=== PATIENT | male | born 1980 | race Two or more races ===

== ENCOUNTER 2024-09-07 18:32 | Emergency (ER) | payer MEDICARE, OTHER ==
[~2024-09-07] VITALS: Ht 152.4 cm; Wt 77.9 kg
[2024-09-07] MEDS: HALOPERIDOL LACTATE 5 MG/ML INJ VIAL IM ONE (18:57)
[2024-09-07] MEDS: HALOPERIDOL LACTATE 5 MG/ML INJ VIAL ONE (18:57)
[2024-09-07 19:28] LABS: Basophils # (auto) 0.1 10 ^3/uL (0-0.2); Eosinophils # (auto) 0.1 10 ^3/uL (0-0.8); Lymphocytes # (auto) 1.9 10 ^3/uL (0.4-5.4); Lymphocytes % (auto) 13.8 % (10.0-50.0); Mean Corpuscular Hemoglobin 28.5 pg (28.0-32.0); Mean Corpuscular Hgb Conc. 34.3 g/dL (32.0-36.0); Monocytes # (auto) 1.9 10 ^3/uL (0-1.3); Monocytes % (auto) 13.5 % (0.0-12.0); Neutrophils # (auto) 9.7 10 ^3/uL (1.6-8.6); Neutrophils % (auto) 70.7 % (37.0-80.0); Nucleated Red Blood Cells % 0.1 %; Platelet Count (auto) 321 10^3/uL (140-450); Red Blood Cells 4.21 10^6/uL (4.5-5.90); Red Cell Distribution Width 13.5 % (11.8-14.3); White Blood Cell 13.7 10^3/uL (4.4-10.8)
[2024-09-07 19:30] VITALS: PULSE 84; RESP 16; O2SAT 96
[2024-09-07 19:47] LABS: Alanine Aminotransferase 25 U/L (7-40); Albumin 3.9 g/dL (3.2-4.8); Alkaline Phosphatase 83 U/L (46-116); Anion Gap 10 (5-15); Aspartate Aminotransferase 18 U/L (13-40); BUN/Creatinine Ratio 19.8 (10.0-20.0); Bilirubin, Total 0.5 mg/dL (0.2-1.0); Blood Urea Nitrogen 16 mg/dL (9-23); Calcium 9.1 mg/dL (8.7-10.4); Carbon Dioxide 24 mmol/L (20-31); Chloride 107 mmol/L (98-107); Potassium 3.9 mmol/L (3.5-5.1); Sodium 141 mmol/L (136-145); Total Protein 6.6 g/dL (5.7-8.2)
[2024-09-07 19:51] LABS: Glucose 115 mg/dL (74-106)
[2024-09-07 20:17] LABS: Urine Bacteria None Seen /hpf (None Seen)
--- NOTE | 2024-09-07 20:22 | ED.PDOC ---
Psychiatric HPI Comments 44 y.o male BIB brother to the ED for an evaluation of left index swelling but is here for mental health assistance. Brother reports patient is homeless, was driving around, found him and brought him into the ED to be evaluated for his swelling and mental state. Brother reports patient has a history of schizophrenia, substance abuse and is non compliant with medication. Brother was concerned of patient's erratic behavior and is requesting a group social worker to aid patient. Patient is unable to answer any questions at this time due to behavior. Chief Complaint: Upper Extremity Time Seen by MD: 20:15 Primary Care Provider: NONE Reviewed Notes: Nurses Notes, Medications, Allergies Information Source: Relative (Sibling) Mode of Arrival: Ambulatory Severity: Unable to Care for Self, Unable to Control Self Severity of Mental Status: Moderate Severity of Symptoms: Moderate Timing: Hours Duration: Since onset Presents with: Other Circumstance: Altered Mental Status Current substance abuse: Unknown Stressors: Homeless History of: Schizophrenia Past Medical History PAST MEDICAL HISTORY: Schizophrenia Surgical History: Unknown Family History Family History: Reviewed,noncontributory to illness Social History Smoker: Unknown Alcohol: Unknown Drugs: Unknown Lives In: Homeless Unable to Obtain due to: Other (unable to answer due to erratic behavior ) Physical Exam General Appearance: Moderate Distress HEENT: Normal ENT Inspection, Pharynx Normal, TMs Normal Neck: Full Range of Motion, Non-Tender, Normal, Normal Inspection Respiratory: Chest Non-Tender, Lungs Clear, No Accessory Muscle Use, No Respiratory Distress, Normal Breath Sounds Cardiovascular: No Edema, No JVD, No Murmur, No Gallop, Normal Peripheral Pulses, Regular Rate/Rhythm Breast Exam: Deferred Gastrointestinal: No Organomegaly, Non Tender, No Pulsatile Mass, Normal Bowel Sounds, Soft Genitalia: Deferred Pelvic: Deferred Rectal: Deferred Extremities: Swelling (left index finger radiating up his hand ) Musculoskeletal : Apperance: Normal Neurologic: Alert, die machine operator II-XII nml as Tested, No Motor Deficits, Normal Affect, Normal Mood, No Sensory Deficits Cerebellar Function: Normal Reflexes: Normal Skin: Dry, Normal Color, Warm Lymphatic: No Adenopathy Was a procedure done? Was a procedure done?: No Psych Differential Dx Psych. Differential Dx: Schizoprenia OD Differential Dx: Delirium, Schizophrenia, Substance Abuse X-Ray, Labs, Meds, VS Vital Signs Date Time Temp Pulse Resp B/P (MAP) Pulse Ox O2 Delivery O2 Flow Rate FiO2 09/07/24 19:30 84 16 96 Room Air* 0 21 09/07/24 19:30 97.8 84 16 110/60 (77) 96 97.8 09/07/24 18:37 100.7 86 16 144/79 (100) 98 100.7 Lab Test 09/07/24 20:10 09/07/24 19:17 Range/Units Urine Color Light-yellow Yellow Urine Clarity Clear Clear Urine pH 6.0 5.0-9.0 Urine Specific [place] 1.018 1.001-1.035 Urine Protein Negative Negative Urine Ketones Negative Negative Urine Blood Negative Negative /uL Urine Nitrite Negative Negative Urine Bilirubin Negative Negative Urine Urobilinogen Normal Negative mg/dL Urine Leukocyte Esterase Negative Negative /uL Urine RBC 1 0 - 3 /hpf Urine Microscopic WBC 1 0-3 /HPF Urine Squamous Epithelial Cells None seen <5 /hpf Urine Bacteria None seen None Seen /hpf Urine Mucus Few None Seen Urine Glucose Normal Normal mg/dL Urine Opiates Screen Neg NEGATIVE Urine Fentanyl Screen Neg NEGATIVE Urine Barbiturates Screen Neg NEGATIVE Urine Phencyclidine Screen Neg NEGATIVE Urine Amphetamines Screen Pos NEGATIVE Urine Benzodiazepines Screen Neg NEGATIVE Urine Cocaine Screen Neg NEGATIVE Urine Cannabinoids Screen Neg NEGATIVE White Blood Count 13.7 H 4.4-10.8 10^3/uL Red Blood Count 4.21 L 4.5-5.90 10^6/uL Hemoglobin 12.0 L 13.5-17.5 g/dL Hematocrit 35.0 L 41.0-53.0 % Mean Corpuscular Volume 83.0 80.0-100.0 fL Mean Corpuscular Hemoglobin 28.5 28.0-32.0 pg Mean Corpuscular Hemoglobin Concent 34.3 32.0-36.0 g/dL Red Cell Distribution Width 13.5 11.8-14.3 % Platelet Count 321 140-450 10^3/uL Mean Platelet Volume 7.2 6.9-10.8 fL Neutrophils (%) (Auto) 70.7 37.0-80.0 % Lymphocytes (%) (Auto) 13.8 10.0-50.0 % Monocytes (%) (Auto) 13.5 H 0.0-12.0 % Eosinophils (%) (Auto) 1.0 0.0-7.0 % Basophils (%) (Auto) 1.0 0.0-2.0 % Neutrophils # (Auto) 9.7 H 1.6-8.6 10 ^3/uL Lymphocytes # (Auto) 1.9 0.4-5.4 10 ^3/uL Monocytes # (Auto) 1.9 H 0-1.3 10 ^3/uL Eosinophils # (Auto) 0.1 0-0.8 10 ^3/uL Basophils # (Auto) 0.1 0-0.2 10 ^3/uL Nucleated Red Blood Cells 0.1 % Sodium Level 141 136-145 mmol/L Potassium Level 3.9 3.5-5.1 mmol/L Chloride Level 107 98-107 mmol/L Carbon Dioxide Level 24 20-31 mmol/L Anion Gap 10 5-15 Blood Urea Nitrogen 16 9-23 mg/dL Creatinine 0.81 0.700-1.30 mg/dL Glomerular Filtration Rate Calc 110 >90 mL/min BUN/Creatinine Ratio 19.8 10.0-20.0 Serum Glucose 115 H 74-106 mg/dL Lactic Acid Level 1.1 0.4-2.0 mmol/L Calcium Level 9.1 8.7-10.4 mg/dL Total Bilirubin 0.5 0.2-1.0 mg/dL Aspartate Amino Transferase (AST) 18 13-40 U/L Alanine Aminotransferase (ALT) 25 7-40 U/L Alkaline Phosphatase 83 46-116 U/L Total Protein 6.6 5.7-8.2 g/dL Albumin 3.9 3.2-4.8 g/dL Current Medications Medications (Trade) Dose Ordered Sig/Georgina Route Start Time Stop Time Status Last Admin Haloperidol Lactate (Haldol) 10 mg ONCE ONCE IM 09/07/24 19:00 09/07/24 19:01 DC 09/07/24 18:57 Ceftriaxone Sodium 50 ml @ 100 mls/hr ONCE ONCE IV 09/07/24 21:00 09/07/24 21:29 DC 09/07/24 21:15 Lorazepam (Ativan Inj) 0.5 mg ONCE ONCE IV 09/07/24 23:45 09/07/24 23:46 DC 09/08/24 00:09 X-Ray, Labs, Meds, VS Comment Spoke with Dr. Rahman, psychiatrist, he had recommends patient will be placed under 5150 hold, patient gravely disabled unable to care for himself Patient placed under ED observation Given Rocephin 1 g for cellulitis of the left index finger Time of 1ST Reevaluation: 20:22 Reevaluation 1ST: Unchanged Patient Education/Counseling: Other Family Education/Counseling: Diagnosis, Treatment, Prognosis Departure 1 Departure Time of Disposition: 00:26 Impression: Primary Impression: Cellulitis of left index finger Additional Impressions: Schizophrenia Qualified Codes: F20.1 - Disorganized schizophrenia Gravely disabled [facility] Condition: Guarded Critical Care Note Critical Care Time?: No Stability Stability form required: No I personally scribed for DARRIN JORDAN ([facility]) on 09/07/24 at 20:22. Electronically submitted by Sarah Helms ([facility]). DARRIN JORDAN Sep 07, 2024 20:22
[2024-09-07 20:27] LABS: Urine Blood Negative /uL (Negative); Urine Clarity Clear (Clear); Urine Color Light-Yellow (Yellow); Urine Mucus FEW (None Seen); Urine Protein, UAD Negative (Negative); Urine Specific Gravity 1.018 (1.001-1.035); Urine Squamous Epithelial Cell None Seen /hpf (<5); Urine Urobilinogen Normal (Negative); Urine WBC 1 /HPF (0-3)
[2024-09-07 20:46] LABS: Amphetamine Screen, Urine Pos (NEGATIVE); Barbiturate Scree,Urine Neg (NEGATIVE); Benzodiazephine Screen, Urine Neg (NEGATIVE); Cannabinoid Screen, Urine Neg (NEGATIVE); Cocaine Screen, Urine Neg (NEGATIVE); Opiate Scree,Urine Neg (NEGATIVE); Phencyclidine Screen, Urine Neg (NEGATIVE)
[2024-09-07] MEDS: cefTRIAXone 1GM/50ML D5W 50 ML IV ONE (21:15)
--- NOTE | 2024-09-07 21:43 | DVH ---
EXAM: CT HEAD WITHOUT CONTRAST INDICATION: aloc TECHNIQUE: CT of the head without intravenous contrast. Radiation Dose Information: CT Dose: CTDI volume is 60.73 mGy. Dose-length product is 973.4 mGy*cm The dose indicators for CT are the volume Computed Tomography (CT) Dose Index (CTDIvol) and the Dose Length Product (DLP), and are measured in units of mGy and mGy-cm, respectively. These indicators are not patient dose, but values generated from the CT scanner acquisition factors. The report includes radiation exposure data for exposures received during this examination. COMPARISON: None FINDINGS: There is no evidence of acute intracranial hemorrhage, extra-axial collection, mass effect, midline s hift, herniation or hydrocephalus. The ventricles, sulci and cisterns are age appropriate. The encarnacion-white differentiation is intact. Patchy periventricular and subcortical white matter hypoattenuation is nonspecific but may be related to small vessel ischemic disease. The visualized paranasal sinuses and mastoid air cells are clear. The surrounding soft tissues and osseous structures are unremarkable. IMPRESSION: 1. No acute intracranial abnormality.
[2024-09-08] MEDS: LORazepam 2MG/ML-1ML VIAL IV ONE ×4 (00:09→22:47)
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
[2024-09-08 07:30] VITALS: PULSE 75; RESP 16; O2SAT 95
[2024-09-08] MEDS ORDERED: AUG875T PO (11:36)
--- NOTE | 2024-09-08 11:36 | ED.PDOC ---
Departure 1 Departure Time of Disposition: 11:36 (We will cellulitis of his left index finger. We will prescribe patient antibiotics. Patient is medically cleared.) Impression: Primary Impression: Cellulitis of left index finger Additional Impressions: Gravely disabled Schizophrenia Qualified Codes: F20.1 - Disorganized schizophrenia Dis[facility]: [facility] Condition: Guarded Additional Instructions: You have cellulitis. This is a skin infection. You were prescribed antibiotics. Please take as directed. You can take tylenol and motrin as needed for pain. It is important that you follow up with your regular doctor within one week to ensure you are doing well. If your symptoms worsen or you have any other concerns then please return to the ER. e-Prescriptions Amoxicillin & Pot Clavulanate (AUGMENTIN TABLET) 875 Mg Tb 875 MG PO BID for 7 Days, #14 TAB Prov: VINNIE CHINCHILLA MD 09/08/24 VINNIE CHINCHILLA MD Sep 08, 2024 11:36
[2024-09-08] MEDS: AMOXICILLIN/CLAVUL 875 MG TAB PO ONE (12:22)
[2024-09-08] MEDS: LORazepam 2MG/ML-1ML VIAL ONE (12:32)
[2024-09-09 08:00] VITALS: PULSE 80; RESP 16; O2SAT 96
[2024-09-09 16:16] VITALS: BP 122/75; PULSE 70; RESP 15; TEMP 98.9; O2SAT 98
[2024-09-09] MEDS ORDERED: traZODone HCL 50 MG TAB PO SCH (18:00)
== END 2024-09-09 16:59 | disposition short-term general hospital (02) ==
LOC: ER 18:32
DX: L03.012 Cellulitis of left finger (principal); F20.9 Schizophrenia, unspecified; Z73.6 Limitation of activities due to disability; R42 Dizziness and giddiness; Z79.899 Other long term (current) drug therapy; Z59.02 Unsheltered homelessness
CPT/HCPCS: 36415; 70450; 80053; 80307; 81001; 83605; 85025; 96365; 96372; 96375; 96376; 99285; J0696; J1630; J2060